=== PATIENT | male | born 1935 | race Caucasian/White ===

== ENCOUNTER 2019-02-26 23:07 | Inpatient (IN) | payer MEDICARE, BC ==
[~2019-02-26] VITALS: Ht 182.9 cm; Wt 146.0 kg
[~2019-02-26 23:07] MED LIST: FURO40TA4 PO; LEVO200T8 PO; LISI10TA4 PO
[2019-02-26 23:27] LABS: BASOPHILS # (AUTO) 0.1 X10'3 (0-0.2); BASOPHILS % (AUTO) 1.2 % (0-1); EOSINOPHILS # (AUTO) 0.6 X10'3 (0-0.9); EOSINOPHILS % (AUTO) 5.4 % (0-6); HEMATOCRIT 51.6 % (42.0-52.0); HEMOGLOBIN 17.7 g/dl (14.0-17.9); LYMPHOCYTES # (AUTO) 1.7 X10'3 (1.1-4.8); LYMPHOCYTES % (AUTO) 15.3 % (21-51); MEAN CORPUSCULAR HEMOGLOBIN 32.3 PG (27.0-31.0); MEAN CORPUSCULAR HGB CONC 34.2 g/dL (33.0-36.5); MEAN CORPUSCULAR VOLUME 94.6 FL (78-98); MEAN PLATELET VOLUME 8.1 FL (7.4-10.4); MONOCYTES # (AUTO) 1.7 X10'3 (0-0.9); MONOCYTES % (AUTO) 15.3 % (2-12); NEUTROPHILS # (AUTO) 6.9 X10'3 (1.8-7.7); NEUTROPHILS % (AUTO) 62.8 % (42-75); PLATELET COUNT 205 X10'3 (140-440); RED BLOOD COUNT 5.46 X10'6 (4.70-6.10); RED CELL DISTRIBUTION WIDTH 14.8 % (11.5-14.5); WHITE BLOOD COUNT 10.9 X10'3 (4.5-11.0)
[2019-02-26] MEDS ORDERED: ALLO100T PO (23:35)
[2019-02-26] MEDS ORDERED: ASPI-611 PO (23:39)
[2019-02-26] MEDS ORDERED: UMEC1DIS INH (23:39)
[2019-02-26] MEDS ORDERED: POTA10CA44 PO (23:39)
[2019-02-26] MEDS ORDERED: METO25TA6 PO (23:39)
[2019-02-26] MEDS ORDERED: FISH12002 PO (23:39)
[2019-02-26] MEDS ORDERED: MELO15TA13 PO (23:39)
[2019-02-26] MEDS ORDERED: ZAR2.5T PO (23:39)
[2019-02-26 23:46] LABS: ALANINE AMINOTRANSFERASE 65 U/L (12-78); ALBUMIN 3.4 G/DL (3.4-5.0); ALBUMIN/GLOBULIN RATIO 0.9 (1.1-1.5); ALKALINE PHOSPHATASE 107 IU/L (46-116); ANION GAP 8 (8-16); ASPARTATE AMINO TRANSFERASE 61 U/L (10-37); BILIRUBIN,TOTAL 0.7 MG/DL (0.1-1.0); BLOOD UREA NITROGEN 29 MG/DL (7-18); BUN/CREATININE RATIO 21.3 (5.4-32.0); CALCIUM 9.4 MG/DL (8.5-10.1); CHLORIDE 99 MMOL/L (99-107); CREATININE 1.36 MG/DL (0.60-1.10); GLUCOSE 121 MG/DL (70-104); POTASSIUM 3.5 MMOL/L (3.5-5.1); SODIUM 139 MMOL/L (135-145); TOTAL CARBON DIOXIDE 32.1 MMOL/L (24-32); TOTAL PROTEIN 7.4 G/DL (6.4-8.2); eGFR 50 ML/MIN
--- NOTE | 2019-02-26 23:49 | NUR ---
I called [facility]. They said there has been no transmission, she doesn't have him as a patient.
--- NOTE | 2019-02-27 00:02 | NUR ---
I was unable to connect device with [employer], so I am on phone with them,
[2019-02-27 00:03] LABS: PLATELET ESTIMATE NORMAL; TOTAL CELLS COUNTED 100
--- NOTE | 2019-02-27 00:04 | NUR ---
[employer] doesn't have him as a patient
--- NOTE | 2019-02-27 00:07 | NUR ---
[employer] isnt his device manager [employer] either. Being connected to [employer]
--- NOTE | 2019-02-27 00:12 | NUR ---
[employer] IS the company. Informed call center that this is stat, they will page tech to come to ER. [phone] is their phone number.
--- NOTE | 2019-02-27 00:30 | NUR ---
Vinicius CleanEdisons ([phone]) returned call to determine whether interrogation needed immediately. Per Dr Padgett, Hospitalist, ok for [employer] rep to interrogate pacemaker in AM as pt's rhythm currently stable.
[2019-02-27] MEDS ORDERED: mag hydrox/Alum hydrox/simeth 30ml oral suspension PO PRN (01:00)
[2019-02-27] MEDS ORDERED: ondansetron/PF 4mg/2ml inj IV PRN (01:00)
[2019-02-27] MEDS ORDERED: magnesium 2GM in 50ml NS 50 ML IV PRN (01:00)
[2019-02-27] MEDS ORDERED: magnesium 4gm in 100ml NS 100 ML IV PRN (01:00)
[2019-02-27] MEDS ORDERED: magnesium Cl slow-release 64mg tablet PO PRN (01:00)
[2019-02-27] MEDS ORDERED: magnesium hydroxide 30ml (MOM) UD suspension PO PRN (01:00)
[2019-02-27] MEDS ORDERED: acetaminophen 325mg tablet PO PRN (01:00)
[2019-02-27] MEDS ORDERED: CLOP75TA15 PO (01:15)
--- NOTE | 2019-02-27 01:51 | NUR ---
Patient in room ED 5. I have received report from SIVA Devi and had the opportunity to ask questions and assume patient care.
[2019-02-27 02:15] VITALS: BP 135/81
--- NOTE | 2019-02-27 05:06 | NUR ---
Informed [facility] of troponin increase
--- NOTE | 2019-02-27 06:20 | NUR ---
Patient in room PCU 3026. I have received report from Angelina and had the opportunity to ask questions and assume patient care.
--- NOTE | 2019-02-27 06:52 | NUR ---
Problems reprioritized. Patient report given, questions answered & plan of care reviewed with SIVA Fine.
[2019-02-27 07:00] VITALS: BP 142/97
[2019-02-27] MEDS ORDERED: UMECLIDINIUM BRM IH SCH (08:00)
[2019-02-27] MEDS ORDERED: levoTHYROXINE 100mcg tablet PO SCH (08:00)
[2019-02-27] MEDS ORDERED: heparin, porcine 5000 units/ml vial SQ SCH (08:00)
[2019-02-27] MEDS ORDERED: clopidogrel 75mg tablet PO SCH (08:00)
[2019-02-27] MEDS ORDERED: allopurinol 300 MG tablet PO SCH (08:00)
[2019-02-27] MEDS ORDERED: furosemide 40mg tablet PO SCH (08:00)
[2019-02-27] MEDS ORDERED: OMEGA-3/DHA/EPA/FISH OIL 1 EACH CAPSULE.DR PO SCH (08:00)
[2019-02-27] MEDS ORDERED: metoprolol tartrate 12.5mg (1/2 tablet) PO SCH (08:00)
[2019-02-27] MEDS ORDERED: losartan 50mg tablet PO SCH (08:00)
[2019-02-27] MEDS ORDERED: aspirin 81mg tablet.DR PO SCH (08:00)
[2019-02-27] MEDS ORDERED: VILANTEROL TR IH SCH (08:00)
[2019-02-27] MEDS ORDERED: potassium chloride 10mEq ER tablet PO SCH (08:00)
[2019-02-27] MEDS ORDERED: INHAL IH SCH (08:00)
[2019-02-27 09:29] VITALS: BP_SYST 136
--- NOTE | 2019-02-27 12:20 | NUR ---
Called Dr. Juan's office, patient had follow up appt on 04/23/19 at 10:45. Patient given this information
--- NOTE | 2019-02-27 13:02 | NUR ---
Patient stable for discharge per MD. Discharge instructions given to patient. All questions and concerns addressed. No new medications were ordered. PIV d/c'd catheter intact. Tele monitor removed and returned to television news reporter. Patient transported off unit by staff to private vehicle. All belongings sent with patient.
== END 2019-02-27 13:02 | disposition home or self-care (01) | DRG 281 ==
LOC: ER 23:08 → ED HOLD 02-27 01:17 → PCU 3S 02-27 02:15
PROVIDERS: ADMIT Internal Medicine; ATTEND Family Medicine
PROC: 4B02XSZ Measurement of Cardiac Pacemaker, External Approach (ICD-10-PCS; principal; 2019-02-27)
DX: T82.9XXA Unspecified complication of cardiac and vascular prosthetic device, implant and graft, initial encounter (principal); I21.A1 Myocardial infarction type 2; N17.9 Acute kidney failure, unspecified; I47.1 Supraventricular tachycardia; E78.00 Pure hypercholesterolemia, unspecified; E78.5 Hyperlipidemia, unspecified; G47.33 Obstructive sleep apnea (adult) (pediatric); Y71.3 Surgical instruments, materials and cardiovascular devices (including sutures) associated with adverse incidents; R09.02 Hypoxemia; I10 Essential (primary) hypertension; J44.9 Chronic obstructive pulmonary disease, unspecified; Z79.02 Long term (current) use of antithrombotics/antiplatelets; Z87.891 Personal history of nicotine dependence; Z95.2 Presence of prosthetic heart valve; Y92.89 Other specified places as the place of occurrence of the external cause
CPT/HCPCS: 36415; 71045; 80053; 84484; 85025; 87081; 93005; 94660; 99285; G0378; J1644